=== PATIENT | female | born 1975 | race Caucasian/White ===

== ENCOUNTER → 2021-01-09 14:45 | Outpatient (CLI) | payer BC, SELFPAY ==
--- NOTE | ~2021-01-09 | MM_ITS ---
EXAMINATION: MM screening [facility] BI w agnieszka HISTORY: Screening TECHNIQUE: Craniocaudal and mediolateral oblique 3-D tomosynthesis images were obtained and synthetic 2-D images were generated. CAD analysis was submitted and interpreted. COMPARISON: Comparison to multiple prior studies sequentially, with oldest reviewed study dated 01/2011. BREAST PARENCHYMAL COMPOSITION: There are scattered areas of fibroglandular density. FINDINGS: There is no evidence of suspicious mass, calcification, or architectural distortion to sugg est malignancy in either breast. There has been no suspicious interval change. IMPRESSION: 1. No mammographic evidence of malignancy. 2. Recommend routine screening mammography in one year. BI-RADS Category 1: Negative Reviewed, dictated and finalized at location A.
== END ==
PROVIDERS: PCP Family Medicine Adolescent Medicine; Visit Provider Obstetrics & Gynecology
DX: Z12.31 Encounter for screening mammogram for malignant neoplasm of breast (principal)
CPT/HCPCS: 77063; 77067

== ENCOUNTER → 2021-03-06 08:36 | Outpatient (CLI) | payer BC, SELFPAY ==
--- NOTE | ~2021-03-06 | MR_ITS ---
EXAMINATION: MR shoulder RT wo con DATE: 03/06/2021 09:12 INDICATION: Right shoulder pain. TECHNIQUE: Magnetic resonance imaging (MRI) of the right shoulder was performed without intravenous c ontrast. Sequences included axial PD-weighted FS FSE, coronal oblique PD-weighted FS FSE and T2-weigh carmelina FS FSE, and sagittal oblique T2-weighted FS FSE and T1-weighted FSE. COMPARISON: Right shoulder radiographs 01/14/2021 FINDINGS: Coracoacromial arch: The acromion undersurface is flat in morphology (type I). Acromioclavicular joint is normal. There is mild subacromial/subdeltoid bursitis. Rotator cuff: There is moderate supraspinatus tendinopathy. There is severe infraspinatus tendinopathy at its dista l attachment. There is an interstitial partial-thickness tear of infraspinatus tendon at its distal a ttachment measuring 3 mm anterior to posterior by 2 mm proximal to distal by 10% tendon thickness. Th ere is bone marrow edema in greater tuberosity, consistent with stress reaction. Teres minor tendon i s normal. Subscapularis tendon is normal. There is no asymmetric fatty atrophy of the rotator cuff mu scle bellies. Biceps tendon and glenoid labrum: Biceps tendon is in bicipital groove. Intra-articular biceps tendon is normal. The glenoid labrum is normal. Fluid: There is no glenohumeral joint effusion. Bones/cartilage: Glenoid cartilage is normal. Humeral head cartilage is normal. IMPRESSION: 1. Severe rotator cuff tendinopathy with small interstitial tear of infraspinatus tendon at its dista l insertion. 2. Mild subacromial/subdeltoid bursitis. Reviewed, dictated and finalized at location A. IMPRESSION: 1. Severe rotator cuff tendinopathy with small interstitial tear of infraspinat us tendon at its distal insertion. 2. Mild subacromial/subdeltoid bursitis.
== END ==
PROVIDERS: Visit Provider Orthopaedic Surgery
DX: M75.51 Bursitis of right shoulder (principal)
CPT/HCPCS: 73221

== ENCOUNTER 2021-05-13 08:23 | Outpatient (CLI) | payer BC, SELFPAY ==
--- NOTE | 2021-05-13 08:30 | ECG_ITS ---
Measurements Intervals [place] Rate: 63 P: 39 NC: 164 QRS: 51 QRSD: 89 T: 52 QT: 391 QTc: 402 Interpretive Statements SINUS RHYTHM BASELINE ARTIFACT- III, AVL NORMAL ECG Electronically Signed On 05-13-2021 8:53:35 GUEST HISTORY CLERK by Alex Schilling D.O.
== END 2021-05-13 08:24 | disposition home or self-care (01) ==
LOC: ANHSURGERY 08:28
PROVIDERS: PCP Family Medicine Adolescent Medicine; Visit Provider Orthopaedic Surgery
DX: Z01.818 Encounter for other preprocedural examination (principal); I10 Essential (primary) hypertension
CPT/HCPCS: 93005

== ENCOUNTER 2021-05-18 00:17 | Day surgery (SDC) | payer BC, SELFPAY ==
[2021-05-11 14:55] VITALS: BMI 28.9
--- NOTE | 2021-05-11 15:18 | PC.NURSE ---
Report to the Outpatient Waiting Room, entrance under the green pavilion located off [facility], at time 0600 on date 05/18/21. OR Time: 0730. - You and your visitor will be asked a series of questions to screen for COVID 19 for your protection. - A mask is required within the hospital. - Only one visitor is allowed at this time. Patient visitors will be guided where to wait when not with patient. Preoperative COVID Testing Requirements: No COVID Test needed if: (proof is required; if not received patient will have Rapid Test prior to entry) - Patient has received COVID Vaccine at least 14 days prior to procedure date or - Patient has positive COVID test result within last 90 days of surgery date. COVID Test needed if above criteria is not met If not COVID vaccinated a COVID test must be conducted within 72 hours of surgery and patient is asked to isolate self from time of testing until procedure. You will go to the [facility] for your COVID testing. The [facility] site is located at the corner of [address] [facility]. You will only be called if COVID results are positive and your surgeon may reschedule your elective surgery date. Patients may have clear liquids (water, carbonated beverages, clear teas, apple juice) until 3 hours prior to surgery with a maximum of 20 ounces. - No food from midnight until time of surgery - Infants may have breast milk until 4 hours before surgery, infant formula 6 hours prior to surgery. - Children will be allowed to drink immediately following surgery. If applicable, please bring a bottle or sippy cup to assist with drinking. Juice, water, soda, and popsicles are readily available. For infants on formula, please bring formula the day of surgery. Pacifiers are allowed. Take the following medications with a SIP of water the morning of surgery: venlafaxine Medications to discontinue per physician n/a Date to take last dose n/a Please no make-up, nail turkish, hairspray, perfume, deodorant, or body powder the day of surgery. No jewelry (including any body piercings) or valuables the day of surgery, leave them at home. Please take a shower or bath the night before, or the morning of, surgery with an antibacterial soap. Wear comfortable, loose fitting clothing. Children are encouraged to wear pajamas. - Jewelry must be removed prior to entering the operating room. Rings and piercings that are not removed may be cut off. - The hospital will not accept responsibility for valuables. - Please leave all valuables, including medications, at home the day of surgery. If you are going home after surgery, a licensed dumpcart driver must drive you home. - NO public transportation without another adult. - We recommend that an adult stay with you for 24 hours following discharge. - We also recommend that you do not drive, make important decision, drink alcoholic beverages, or take any drugs that were not prescribed by your health care provider for at least 24 hours after your discharge time. For Pediatric surgeries, we recommend two adults accompany the child home (only one inside the building at this time). Follow any additional instructions given to you from your surgeon. Telephone instructions given to Shantelle Rosas and asked if any additional questions and then verbalized understanding. Patient advised to call surgeon office or pre surgery nurse liaison [phone] if any additional questions.
[2021-05-18 06:09] VITALS: BP 127/85; PULSE 71; RESP 16; TEMP 36.3; O2SAT 100
[2021-05-18] MEDS: KETOROLAC 15 MG/ML VIAL (*BKC) IV PUSH (06:39)
[2021-05-18] MEDS: ACETAMINOPHEN 500 MG TABLET 1000 MG PO (06:39)
--- NOTE | 2021-05-18 07:03 | WPDANESEPPF ---
Anes - Initial Pre Proc Eval Procedure: Operation Date: 05/18/21 07:30 Proposed Procedures p Right Open Rotator Cuff Repair, Distal Clavicle Excision - David Pimentel MD Date/Time: 05/18/21 07:03 Surgeon: David Pimentel MD Pre Op Diagnosis: right rotator cuff tear, ac arthritis Patient Data Age: 46 Gender: F Height: 1.6 m Weight: 77.1 kg Allergies Allergy/AdvReac Type Severity Reaction Status Date / Time No Known Allergies Allergy Unverified 05/18/21 07:01 Home Medications Medication Instructions Recorded Confirmed Type candesartan 32 mg tablet 32 mg PO DAILY 11/18/20 05/18/21 History venlafaxine 75 mg tablet 75 mg PO DAILY 11/18/20 05/18/21 History conjugated estrogens [Premarin] 0.625 mg VAGINAL DAILY 05/11/21 05/18/21 History Patient hx anesthesia problems: post op nausea/vomiting Family hx anesthesia problems: none Results Review: All pre-operative results and documents have been reviewed as part of the pre-operative evaluation. [facility] Past Medical History Medical History Arthritis Arthritis of right acromioclavicular joint Hypertension Right rotator cuff tear Subacromial impingement of right shoulder Surgical History Surgical History History of right knee joint replacement 2017 Social History Social History Smoking status: Never smoker Alcohol intake: never Substance use: never Living arrangements: alone Additional occupation/education comments: [employer] Gender identity (if verbalized by the patient): Female Spiritual care concerns: No Anes - Eval Final PreProcedure Day of Procedure 05/18/21 07:03 Patient weight: overweight Heart: regular rate and rhythm Lungs: clear to auscultation Airway: Mallampati scale class II Neurological: alert and oriented Last oral intake: >/= 8 hours ASA classification: II Emergent: no Anesthetic plan: proceed Anesthesia type and monitoring: general LMA and standard monitoring Results Review: All pre-operative results and documents have been reviewed as part of the pre-operative evaluation. Informed Consent: The patient's anesthetic plan and its attendant risks and benefits were discussed with the patient/family/POA. Questions were solicited and answers provided to the satisfaction of the patient/family/POA.
[2021-05-18] MEDS: SCOPOLAMINE 1.5 MG PATCH TRANSDERM (07:09)
--- NOTE | 2021-05-18 07:22 | WPDHPUPDATE1 ---
History and Physical Update Update Date/Time: 05/18/21 07:22 History and Physical has been reviewed, including an updated exam of the patient. There are NO changes in the patient's condition. Risks, benefits, and alternatives have been discussed and questions answered. Patient agrees to proceed with procedure.
[2021-05-18] MEDS: ceFAZolin 2 GM/D5W 50 ML 2 GM/50 ML BAG IVPB (07:30)
--- NOTE | 2021-05-18 07:33 | WPDANESPNB ---
Anes - Peripheral Nerve Block Date/Time: 05/18/21 07:33 I have discussed with the patient/family/POA the placement of a peripheral nerve block for post-operative pain management, including associated risks, benefits, complications, and side effects. Alternative methods of post-operative analgesia were detailed. Questions were solicited and answers provided to the satisfaction of the patient/family/POA. Time-Out: A pre-procedural Time-Out was completed immediately before starting the procedure and confirmed: Patient Identification, Site, Procedure, Patient Position and the Availability of Requisite Equipment. Clinical Indications: Acute post-operative pain management requested by the operative surgeon. Nerve Block Insertion Note Anes-nerve block: interscalene right Needle: 22 gauge, stimulating, insulated echogenic needle. Needle length: 50 mm Technique: nerve stimulation lost at (mA) (0.3) and ultrasound Technique comment: mid2mg [id number] Injectate: bupivacaine 0.5% with epi 5 mcg/ml (30ml no epi) and dexamethasone (mg) (4) Observations: tolerated well Complications: none Procedure start time:: 721 Procedure end time:: 728
[2021-05-18 08:45] VITALS: BP 124/79; PULSE 75; RESP 11; TEMP 36.4; O2SAT 100
[2021-05-18] MEDS: LACTATED RINGERS 1,000 ML 30 ML IV CONT ×2 (08:45)
--- NOTE | 2021-05-18 08:45 | P.OP_ITS ---
Procedure Note - Detailed Date of Procedure 05/18/21 Pre-op Diagnosis right rotator cuff tear, ac arthritis Post-op Diagnosis same Procedure Performed right shoulder rotator cuff repair with distal clavicle excision Surgeon David Pimentel MD Yard Inspector Camille Devine Anesthesia general and regional Description of Procedure Patient was identified and proper site identified. In the preop holding area the anesthesia team performed a right upper extremity block. She was then taken to the operating room and transferred to the or table taking care to pad the torso and extremities. After general anesthetic induction and intubation, she was put in a semi beach chair position in the usual manner for a right shoulder procedure. Her head was secured taking care to neither rotate nor extend the head and neck. The right upper extremity was prepped and draped free in usual sterile fashion. The subcutaneous tissue in the area of the incision was injected with 10 cc of 0.25% Marcaine and epinephrine solution. An oblique anterior incision was made extending from the AC joint distally in line with the fibers of the deltoid. Subcutaneous tissue was sharply dissected down to the deltoid fascia. The deltoid was dissected off the anterior portion of the acromion in the distal end of the clavicle. A 2 cm split was made at the junction between the anterior and middle thirds of the deltoid. Using the microsagittal saw the last 8 mm of clavicle removed. The saw was also used to perform the acromioplasty and then the undersurface of the acromion was rasped smooth. There was an abundance of thickened adherent bursa which was sharply debrided from the rotator cuff along for complete inspection. In the area corresponding to the MRI at the infraspinatus attachment there was a near full- thickness tear. There was perhaps 10% of the tendon remaining. This was detached from the greater tuberosity and the tuberosity repaired for the repair. This was carried out with 2. Ethibond through a bony bridge. This gave a gallardo repair which was stable as the shoulder was taken through range of motion. The wound was irrigated with sterile NaCl solution. The deltoid was repaired back to the acromion with 2. Ethibond suture passed through bone and the remainder of the deltoid repair carried out with 2. Vicryl. Subcutaneous tissue was reapproximated with 2. Strata fix and then tissue adhesive used for the skin. Sterile dressing was applied. There were no known intraoperative complications, and perioperative antibiotics were administered. Estimated Blood Loss 15 Drains No Packing No Pathology none sent Complications No immediate complications Condition stable Disposition PACU
[2021-05-18 09:00] VITALS: BP 119/82; PULSE 76; RESP 16; O2SAT 100
[2021-05-18 09:15] VITALS: BP 121/79; PULSE 76; RESP 14; O2SAT 96
[2021-05-18 09:25] VITALS: BP 134/88; PULSE 78; RESP 16
[2021-05-18 09:55] VITALS: BP 127/81; PULSE 80; RESP 16
== END 2021-05-18 10:15 | disposition home or self-care (01) ==
PROVIDERS: PCP Family Medicine Adolescent Medicine; Visit Provider Orthopaedic Surgery
PROC: (CPT 23420; principal; 2021-05-18 07:30)
DX: M75.111 Incomplete rotator cuff tear or rupture of right shoulder, not specified as traumatic (principal); M75.41 Impingement syndrome of right shoulder; M19.011 Primary osteoarthritis, right shoulder; G89.18 Other acute postprocedural pain; I10 Essential (primary) hypertension
CPT/HCPCS: 23412; 23120; 64415; 93005; A4565; A9270; J0330; J0690; J1100; J1885; J2250; J2270; J2405; J2704; J7120

== ENCOUNTER → 2022-01-08 09:53 | Outpatient (CLI) | payer BC, SELFPAY ==
--- NOTE | ~2022-01-08 | XR_ITS ---
XR knee RT 3V DATE: 01/08/2022 10:13 INDICATION: Right arthroplasty TECHNIQUE: [place] and AP and lateral views COMPARISON: 10/07/2021 right knee FINDINGS: There is moderate suprapatellar knee joint effusion Status post right total knee arthroplasty. No fracture or dislocation, periosteal reaction or bone destruction. IMPRESSION: Suprapatellar knee joint effusion Status post right total knee arthroplasty Reviewed, dictated and finalized at location A.
== END ==
PROVIDERS: PCP Family Medicine Adolescent Medicine; Visit Provider Nurse Practitioner
DX: M25.461 Effusion, right knee (principal); Z96.651 Presence of right artificial knee joint
CPT/HCPCS: 73562

== ENCOUNTER 2023-02-04 01:07 | Day surgery (SDC) | payer BC, SELFPAY ==
[2023-01-25 13:06] VITALS: BMI 29.8
[2023-02-04 12:43] VITALS: BP 113/80; PULSE 71; RESP 16; TEMP 36.3; O2SAT 100
[2023-02-04] MEDS: LACTATED RINGERS 1,000 ML 150 ML IV CONT (12:52)
--- NOTE | 2023-02-04 12:58 | WPDANESEPPF ---
Anes - Initial Pre Proc Eval Procedure: Operation Date: 02/04/23 14:00 Proposed Procedures p Screening Colonoscopy - Charlie Collins MD Date/Time: 02/04/23 12:58 Surgeon: Charlie Collins MD Pre Op Diagnosis: neoplasm screening Patient Data Age: 47 Gender: F Height: 1.6 m Weight: 75.5 kg Last Vital Signs Temp 97.4 F L 02/04/23 12:43 Pulse 71 02/04/23 12:43 Resp 16 02/04/23 12:43 BP 113/80 02/04/23 12:43 Pulse Ox 100 02/04/23 12:43 O2 Del Method Room Air 02/04/23 12:43 Allergies Allergy/AdvReac Type Severity Reaction Status Date / Time No Known Allergies Allergy Verified 02/04/23 12:42 Home Medications Medication Instructions Recorded Confirmed Type venlafaxine 75 mg tablet 75 mg PO DAILY 11/18/20 02/04/23 History estradiol 0.5 mg tablet 0.5 mg PO DAILY 01/05/22 02/04/23 History candesartan 32 mg tablet 32 mg PO DAILY #90 tabs 12/13/22 02/04/23 Rx hydrochlorothiazide 25 mg tablet 25 mg PO DAILY #90 tabs 12/13/22 02/04/23 Rx topiramate 100 mg tablet 100 mg PO QHS #90 tabs 01/04/23 02/04/23 Rx amoxicillin 875 mg-potassium 1 tablet PO Q12H 02/04/23 02/04/23 History clavulanate 125 mg tablet Patient hx anesthesia problems: none Family hx anesthesia problems: none Results Review: All pre-operative results and documents have been reviewed as part of the pre-operative evaluation. [facility] Past Medical History Medical History Arthritis Hypertension Subacromial impingement of right shoulder Surgical History Surgical History Arthritis of right acromioclavicular joint right rotator cuff repair with DCE May 18, 2021 History of right knee joint replacement 2017 History of total hysterectomy Right rotator cuff tear right rotator cuff repair with DCE May 18, 2021 Family History Family History Mother Brain aneurysm Sibling Cervical cancer Social History Social History Smoking status: Former smoker Second hand tobacco smoke exposure: No Alcohol intake: current Alcohol use details: Rarely Substance use: never Substance use type: does not use Lack of Transportation: No Lack of Food: Never True Current Housing: I Have Housing Concerned About Future Housing: No Difficulty Paying Gas/Electric Bills: No Difficulty Paying for Meds: No Currently Unemployed: No Education: Master's Degree or Higher Difficulty w/ Childcare or Family Care: No Living arrangements: with family Occupation/Education: occupation Additional occupation/education comments: [employer] Gender identity (if verbalized by the patient): Female Sexual Orientation (if Verbalized by the Patient): Straight or Heterosexual Spiritual care concerns: No Agree to blood products: Yes Anes - Eval Final PreProcedure Day of Procedure 02/04/23 12:58 Patient weight: normal Heart: regular rate and rhythm Lungs: clear to auscultation Airway: Mallampati scale class II Neurological: alert and oriented Last oral intake: >/= 8 hours ASA classification: II Emergent: no Anesthetic plan: proceed Anesthesia type and monitoring: general GIVS and standard monitoring Results Review: All pre-operative results and documents have been reviewed as part of the pre-operative evaluation. Informed Consent: The patient's anesthetic plan and its attendant risks and benefits were discussed with the patient/family/POA. Questions were solicited and answers provided to the satisfaction of the patient/family/POA.
--- NOTE | 2023-02-04 13:25 | PM.HPGS ---
History of Present Illness History of Present Illness Consent: Risks, benefits, and alternatives have been discussed and questions answered. Patient agrees to proceed with procedure. Chief complaint: neoplasm screening Narrative: Shantelle Rosas is a 47 year old female Presents for screening colonoscopy. Patient's current weight appetite and bowel movements are normal. She denies abdominal pain. Patient has had no bleeding. Family history is noncontributory. [facility] Past Medical History Medical History Arthritis Hypertension Subacromial impingement of right shoulder Surgical History Surgical History Arthritis of right acromioclavicular joint right rotator cuff repair with DCE May 18, 2021 History of right knee joint replacement 2017 History of total hysterectomy Right rotator cuff tear right rotator cuff repair with DCE May 18, 2021 Family History Family History Mother Brain aneurysm Sibling Cervical cancer Social History Social History Smoking status: Former smoker Second hand tobacco smoke exposure: No Alcohol intake: current Alcohol use details: Rarely Substance use: never Substance use type: does not use Lack of Transportation: No Lack of Food: Never True Current Housing: I Have Housing Concerned About Future Housing: No Difficulty Paying Gas/Electric Bills: No Difficulty Paying for Meds: No Currently Unemployed: No Education: Master's Degree or Higher Difficulty w/ Childcare or Family Care: No Living arrangements: with family Occupation/Education: occupation Additional occupation/education comments: [employer] Gender identity (if verbalized by the patient): Female Sexual Orientation (if Verbalized by the Patient): Straight or Heterosexual Spiritual care concerns: No Agree to blood products: Yes Meds Home Medications and Allergies Home Medications Medication Instructions Recorded Confirmed Type venlafaxine 75 mg tablet 75 mg PO DAILY 11/18/20 02/04/23 History estradiol 0.5 mg tablet 0.5 mg PO DAILY 01/05/22 02/04/23 History candesartan 32 mg tablet 32 mg PO DAILY #90 tabs 12/13/22 02/04/23 Rx hydrochlorothiazide 25 mg tablet 25 mg PO DAILY #90 tabs 12/13/22 02/04/23 Rx topiramate 100 mg tablet 100 mg PO QHS #90 tabs 01/04/23 02/04/23 Rx amoxicillin 875 mg-potassium 1 tablet PO Q12H 02/04/23 02/04/23 History clavulanate 125 mg tablet Allergies Allergy/AdvReac Type Severity Reaction Status Date / Time No Known Allergies Allergy Verified 02/04/23 12:42 Vital Signs Vital Signs - 24 hr 02/04/23 12:43 Temperature 97.4 F L Pulse Rate 71 Respiratory Rate 16 Blood Pressure 113/80 Pulse Oximetry 100 Oxygen Delivery Room Air Exam Narrative: Physical exam reveals patient to be alert. Vital signs stable. HEENT exam is unremarkable. Patient is anicteric. Lungs are clear to auscultation and percussion. Heart is without murmur or extra sounds. Abdomen bowel sounds are present soft nontender with no organomegaly. Digital external rectal exam is normal. Assessment and Plan Assessment and plan (1) Colon cancer screening: Code(s): Z12.11 - Encounter for screening for malignant neoplasm of colon Status: Acute Assessment and Plan: Patient presents today for screening colonoscopy. She appears to be at average risk for colon polyps. Further recommendations may be given after endoscopy.
[2023-02-04 14:28] VITALS: BP 103/73; PULSE 68; RESP 24; O2SAT 100
[2023-02-04 14:38] VITALS: BP 106/69; PULSE 60; RESP 16; O2SAT 100
[2023-02-04 14:48] VITALS: BP 111/81; PULSE 63; RESP 20; O2SAT 100
== END 2023-02-04 14:55 | disposition home or self-care (01) ==
PROVIDERS: PCP Family Medicine Adolescent Medicine; Visit Provider Internal Medicine Gastroenterology
PROC: 0DJD8ZZ Inspection of Lower Intestinal Tract, Via Natural or Artificial Opening Endoscopic (ICD-10-PCS; CPT 45378; principal; 2023-02-04 14:00)
DX: Z12.11 Encounter for screening for malignant neoplasm of colon (principal); K64.8 Other hemorrhoids; I10 Essential (primary) hypertension
CPT/HCPCS: 45378; J2704; J7120

== ENCOUNTER → 2023-03-11 09:53 | Outpatient (CLI) | payer BC, SELFPAY ==
--- NOTE | ~2023-03-11 | MM_ITS ---
EXAMINATION: MM screening [facility] BI w agnieszka HISTORY: Screening mammogram TECHNIQUE: Craniocaudal and mediolateral oblique 3-D tomosynthesis images were obtained and synthetic 2-D images were generated. CAD analysis was submitted and interpreted. COMPARISON: 01/09/2021, 12/19/2018, 12/30/2016 bilateral screening mammogram examinations BREAST PARENCHYMAL COMPOSITION: There are scattered areas of fibroglandular density. FINDINGS: There is no evidence of suspicious mass, calcification, or architectural distortion to sugg est malignancy in either breast. There has been no suspicious interval change. IMPRESSION: 1. No mammographic evidence of malignancy. 2. Recommend routine screening mammography in one year. BI-RADS Category 1: Negative Reviewed, dictated and finalized at location A.
== END ==
PROVIDERS: PCP Obstetrics & Gynecology; Visit Provider Obstetrics & Gynecology
DX: Z12.31 Encounter for screening mammogram for malignant neoplasm of breast (principal)
CPT/HCPCS: 77063; 77067

== ENCOUNTER 2023-10-04 07:52 | Outpatient (RCR) | payer BC, SELFPAY ==
--- NOTE | 2023-10-04 08:27 | OPREHPOC ---
Outpatient Therapy Plan of Care This is a Multidisciplinary Plan of Care that may contain components documented by all disciplines (PT, OT, and ST.) PT Problem 1 PT Problem #1 Knowledge Deficit PT Goal 1 Goal 1. independent and compliant with HEP Target Visit 4 PT Problem 2 PT Problem #2 Pain PT Goal 1 Goal 1. decrease pain at worst to 3/10 or less with lifting and pulling activities. Target Visit 8 PT Problem 3 PT Problem #3 Impaired Range of Motion PT Goal 1 Goal 1. improve L shoulder active IR to 70 degrees or better 2. pain free functional L shoulder IR and ER reaching behind back and head. Target Visit 8 PT Problem 4 PT Problem #4 Impaired Strength PT Goal 1 Goal 1. improve L shoulder strength to 4+/5 or better overall 2. improve L elbow strength to 5/5 Target Visit 8 PT Problem 5 PT Problem #5 Impaired Functional Mobil PT Goal 1 Goal 1. quick dash to display less than 20% functional deficits 2. patient to get dressed without pain or symptoms in the L shoulder 3. patient to put on seat belt without pain 4. patient to return to gardening and home care tasks without pain in the L shoulder Target Visit 8
--- NOTE | 2023-10-04 08:27 | PTOPEVAL1 ---
Assessment and note entered by JT File, PT Evaluation Information Assessment Status Evaluation Diagnosis L RTC strain Onset 09/28/23 Subjective Information patient reports she has had pain in the L shoulder since working in her yard last summer. she reports the pain is not going away. she reports she ro difficulty pulling up the covers in bed, getting dressed, putting on a coat, putting on a seat belt, and even looking at her watch. she was put on naproxen last week which has helped slightly. she reports she has had a tear in the R RTC in the past which she had surgery for. she reports she has not been approved for and MRI yet. Reported Pain Level Pain Score 3: Self Report Assessment PT Clinical Summary mrs. hernández is a 48 yo woman who presents to skilled PT services for evaluation and treatment of L shoulder pain. she presents today with weak L shoulder strength, pain at rest and with functional activities/lifting, and pain with special testing of the L shoulder RTC. her signs and symptoms indicate a L RTC tendonitis. she would benefit from continued skilled PT services to improve her objective/functional deficits and progress towards a return to her prior level lifting, reaching, and functional activity performance. Plan of Care Interventions Electrical Stimulation,Hot Pack/Cold Pack,Manual Therapy,Neuro Re-education,Patient/Caregiver Educati,Therapeutic Activities,Therapeutic Exercise PT Services Indicated Yes Treatment Frequency and 2x weekly for 10 visits Duration These treatments will address the objective and functional deficits as defined above. The patient will be advanced safely and appropriately in order for the patient to progress towards his/her prior level of function. Additional exercises will be introduced and as well as a comprehensive home exercise program upon discharge, if needed, ?to ensure carryover of functional gains achieved in the clinic. This treatment plan has been reviewed and agreement upon by the patient.
--- NOTE | 2023-10-27 15:42 | OPREHPOC ---
Outpatient Therapy Plan of Care This is a Multidisciplinary Plan of Care that may contain components documented by all disciplines (PT, OT, and ST.) PT Problem 1 PT Problem #1 Knowledge Deficit PT Goal 1 Goal 1. independent and compliant with HEP Target Visit 4 Progress Met PT Problem 2 PT Problem #2 Pain PT Goal 1 Goal 1. decrease pain at worst to 3/10 or less with lifting and pulling activities. Target Visit 12 Progress Not Met Comment continue PT Problem 3 PT Problem #3 Impaired Range of Motion PT Goal 1 Goal 1. improve L shoulder active IR to 70 degrees or better 2. pain free functional L shoulder IR and ER reaching behind back and head. Target Visit 8 Progress Met PT Problem 4 PT Problem #4 Impaired Strength PT Goal 1 Goal 1. improve L shoulder strength to 4+/5 or better overall 2. improve L elbow strength to 5/5. met Target Visit 12 Progress Partially Met PT Problem 5 PT Problem #5 Impaired Functional Mobil PT Goal 1 Goal 1. quick dash to display less than 20% functional deficits 2. patient to get dressed without pain or symptoms in the L shoulder 3. patient to put on seat belt without pain 4. patient to return to gardening and home care tasks without pain in the L shoulder Target Visit 12 Progress Not Met
--- NOTE | 2023-10-27 15:43 | PTOPREEVAL ---
Assessment and note entered by JT File, PT Evaluation Information Assessment Status Re-evaluation Diagnosis L RTC strain Onset 09/28/23 Subjective Information patient reports she feels pretty good coming into therapy today. however, at time she still has increased pain with certain movements. she reports reaching in the back of the car with the L arm. she reports her pain is increased with activity, and decreased with rest. she reports she feels the shoulder is a little bit better. however, she reports at times even just slight movements with still increase her pain. she reports she has a follow up with the MD on . Reported Pain Level Pain Score 1: Self Report Assessment PT Clinical Summary mrs. hernández presents to skilled PT for treatment and re-evaluation of progress towards goals for the L shoulder. she continues to have pain with increased activity, but low pain at rest. she reports burning in the L shoulder mm's with resistive weight exercises. she does achieve greater L shoulder active IR ROM, and full functional reaching of the L UE without pain. however, she continues to have pain and weakness in the L shoulder with MMT. she has met goal for HEP performance and rom. however, she still lacks achievement of goals for pain, strength, and functional activity performance. continued skilled PT is indicated to improve patients objective/ functional deficits and progress towards a return to her prior level functional activity performance /quality of life. Plan of Care Interventions Electrical Stimulation,Hot Pack/Cold Pack,Manual Therapy,Neuro Re-education,Patient/Caregiver Educati,Therapeutic Activities,Therapeutic Exercise PT Services Indicated Yes Treatment Frequency and continue skilled PT for 2x weekly for 6 more Duration visits These treatments will address the objective and functional deficits as defined above. The patient will be advanced safely and appropriately in order for the patient to progress towards his/her prior level of function. Additional exercises will be introduced and as well as a comprehensive home exercise program upon discharge, if needed, ?to ensure carryover of functional gains achieved in the clinic. This treatment plan has been reviewed and agreement upon by the patient.
--- NOTE | 2023-12-21 08:49 | PTOPREEVAL ---
Assessment and note entered by JT File, PT Evaluation Information Assessment Status Re-evaluation Diagnosis L RTC strain Onset 09/28/23 Subjective Information patient reports she continues to have pain in the L shoulder. she reports it is especially sore today. she reports she is not sure why it is more sore other than having back to back therapy days. she reports she returns to the MD on 11/09/23 at 7 :30am. she reports her shoulder has gotten a little better with therapy, but still has bouts of pain with slight movements of the L shoulder ( reaching behind back, putting on seat belt, pulling with the L arm). Assessment PT Clinical Summary mrs. hernández presents to skilled PT services for her 9th skilled PT visit. she displays full active L shoulder rom, but continues to have weakness in the L shoulder and pain with mmt/functional use of the L shoulder. she is confident this is the same issue she had on the other shoulder some time ago. she believes she will likely need surgery on the L shoulder. as of this date, she will be held from skilled PT until follow up with ortho on . Plan of Care Interventions Electrical Stimulation,Hot Pack/Cold Pack,Manual Therapy,Neuro Re-education,Patient/Caregiver Educati,Therapeutic Activities,Therapeutic Exercise PT Services Indicated Yes Treatment Frequency and hold therapy until follow up with ortho. Duration These treatments will address the objective and functional deficits as defined above. The patient will be advanced safely and appropriately in order for the patient to progress towards his/her prior level of function. Additional exercises will be introduced and as well as a comprehensive home exercise program upon discharge, if needed, ?to ensure carryover of functional gains achieved in the clinic. This treatment plan has been reviewed and agreement upon by the patient.
--- NOTE | 2024-03-29 10:05 | PCPTNOTE ---
Pt has not been seen since 11/03/23 and has not followed up. Pt is discharged. -Lisa Nguyễn, PT
== END 2023-11-03 15:15 | disposition home or self-care (01) ==
LOC: CHSPT 07:52
PROVIDERS: Visit Provider Orthopaedic Surgery
DX: S46.012D Strain of muscle(s) and tendon(s) of the rotator cuff of left shoulder, subsequent encounter (principal)
CPT/HCPCS: 97014; 97110; 97140; 97161; G0283

== ENCOUNTER 2023-11-18 09:22 | Outpatient (CLI) | payer BC, SELFPAY ==
--- NOTE | ~2023-11-18 | MR_ITS ---
MRI of the left shoulder Technique: Axial proton-density fat-sat images, coronal proton density fat-sat and T2 fat-sat images, and sagittal T1-weighted and T2 fat-sat images were acquired. Clinical History: Pain Findings: There is minimal degenerative changes AC joint. Coracoclavicular, coracoacromial, and corac ohumeral ligaments are intact. Supraspinatus and infraspinatus tendons are intact, without partial or full-thickness tear. Subscapul anatoliy tendon is intact. Tendon of the long head of the biceps is intact. No labral tear identified. Inferior glenohumeral ligament is intact. No significant effusion or degenerative change of the gleno humeral joint. No fluid distention of the subacromial/subdeltoid bursa. No muscle atrophy or edema. Impression: No significant abnormality seen. Reviewed, dictated and finalized at [facility]. Impression: No significant abnormality seen.
== END 2023-11-18 09:23 ==
LOC: MICIMG 09:23
PROVIDERS: PCP Orthopaedic Surgery; Visit Provider Orthopaedic Surgery
DX: M25.512 Pain in left shoulder (principal)
CPT/HCPCS: 73221

== ENCOUNTER 2024-09-21 11:40 | Outpatient (CLI) | payer OTHER, SELFPAY ==
--- NOTE | ~2024-09-21 | MM_ITS ---
EXAMINATION: MM screening [facility] BI w agnieszka HISTORY: Screening TECHNIQUE: Craniocaudal and mediolateral oblique 3-D tomosynthesis images were obtained and synthetic 2-D images were generated. CAD analysis was submitted and interpreted. COMPARISON: 03/11/2023 and dating back to 12/30/2016 BREAST PARENCHYMAL COMPOSITION: There are scattered areas of fibroglandular density. FINDINGS: Punctate calcifications detected bilaterally, vascular in origin and benign in appearance. Stable parenchymal pattern without suspicious microcalcifications, architectural distortion, discrete masses or significant asymmetry. IMPRESSION: 1. No mammographic evidence of malignancy. 2. Recommend routine screening mammography in one year. BI-RADS Category 2: Benign finding(s). Reviewed, dictated and finalized at location [facility].
== END 2024-09-21 11:41 | disposition home or self-care (01) ==
LOC: MICIMG 11:41
PROVIDERS: PCP Nurse Practitioner Family; Visit Provider Obstetrics & Gynecology
DX: Z12.31 Encounter for screening mammogram for malignant neoplasm of breast (principal)
CPT/HCPCS: 77063; 77067

== ENCOUNTER 2025-01-09 10:26 | Outpatient (CLI) | payer OTHER, SELFPAY ==
--- NOTE | ~2025-01-09 | MR_ITS ---
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 These were followed by axial T2-weigh carmelina, diffusion weighted, gradient, and FLAIR images. Thin cut coronal and axial T1-weighted and T2-we ighted images were performed through the internal auditory canal regions. Findings: No acute infarct, intracranial hemorrhage, or mass lesion seen. Possible minimal chronic mi crovascular ischemic changes noted in the periventricular white matter. Ventricles and subarachnoid spaces are unremarkable. Orbits are unremarkable. Paranasal sinuses and m astoid air cells are clear. Major intracranial flow voids appear intact. Sagittal midline structures are intact. Thin cut images demonstrate normal appearance of the trigeminal nerve roots and Meckel's cave bilater ally. No mass lesion evident in the CP angles or internal auditory canals. IMPRESSION: No significant abnormality. Reviewed, dictated and finalized at [facility]. IMPRESSION: No significant abnormality.
== END 2025-01-09 10:27 | disposition home or self-care (01) ==
LOC: GOSHIMG 10:26
PROVIDERS: PCP Nurse Practitioner Family; Visit Provider Nurse Practitioner Family
DX: G44.099 Other trigeminal autonomic cephalgias (TAC), not intractable (principal)
CPT/HCPCS: 70551